=== PATIENT | male | born 1955 | race Hispanic/Latino ===

== ENCOUNTER 2017-06-28 07:07 | Day surgery (SDC) | payer OTHER ==
[2017-06-28 08:14] LABS: Basophils # (Auto) 0.1 K/mm3 (0.0-0.1); Eosinophils # (Auto) 0.5 K/mm3 (0.0-0.4); Eosinophils % (Auto) 6.5 % (0.0-4.3); Hematocrit 44.4 % (35.5-45.6); Lymphocytes # (Auto) 2.1 K/mm3 (1.2-5.4); Lymphocytes % (Auto) 26.4 % (13.4-35.0); Mean Corpuscular HGB Conc 34 % (32-34); Mean Corpuscular Hemoglobin 28 pg (28-32); Mean Corpuscular Volume 83 fl (84-94); Monocytes # (Auto) 0.9 K/mm3 (0.0-0.8); Monocytes % (Auto) 11.1 % (0.0-7.3); Platelet Count 143 K/mm3 (140-440); Red Blood Count 5.37 M/mm3 (3.65-5.03)
[2017-06-28 08:39] LABS: INR 1.01 (0.87-1.13)
[2017-06-28 08:40] LABS: Partial Thromboplastin Time 32.2 Sec. (24.2-36.6)
[2017-06-28] MEDS ORDERED: VERSED IV ONE ×2 (10:53→11:14)
[2017-06-28] MEDS ORDERED: SUBLIMAZE IV ONE (10:53)
[2017-06-28] MEDS ORDERED: GELFOAM 12 X 7 TP ONE ×2 (11:23→13:00)
--- NOTE | 2017-06-28 11:58 | Short Stay Summary ---
Short Stay Documentation Date of service: 06/28/17 - History Principal diagnosis: renal disease Past Medical History: renal failure Social history: no significant social history - Allergies and Medications Current Medications: Allergies No Known Allergies Allergy (Verified 06/28/17 07:43) Home Medications Medication Instructions Recorded Confirmed Last Taken Type Apremilast [Otezla] 30 mg PO DAILY 06/22/15 06/28/17 06/27/17 History Carvedilol [Coreg] 25 mg PO BID 06/22/15 06/28/17 06/27/17 History Cholecalciferol Vit D3 [Vitamin D3] 1,000 unit PO QDAY 06/22/15 06/28/17 History Febuxostat (Nf) [Uloric (Nf)] 80 mg PO DAILY 06/22/15 06/28/17 06/27/17 History Fexofenadine/Pseudoephedrine 1 each PO DAILY 06/22/15 06/28/17 06/27/17 History [[place]-D 24 Hour Tablet] Lansoprazole [Lansoprazole] 30 mg PO DAILY 06/22/15 06/28/17 06/27/17 History Lisinopril [Zestril TAB] 20 mg PO QDAY 06/22/15 06/28/17 06/27/17 History [place]-3 Fatty Acids/Fish Oil [Fish 3 each PO DAILY 06/22/15 06/28/17 06/27/17 History Oil] Testosterone Cypionate 200 mg IM QWEEK 06/22/15 06/28/17 06/20/17 History [Depo-Testosterone] AtorvaSTATin [Lipitor] 20 mg PO QHS 06/28/17 06/28/17 06/27/17 History Colchicine [Colcrys] 0.6 mg PO DAILY 06/28/17 06/28/17 06/27/17 History Metformin HCl [Metformin HCl] 1,000 mg PO DAILY 06/28/17 06/28/17 06/27/17 History amLODIPine [Norvasc] 10 mg PO DAILY 06/28/17 06/28/17 06/27/17 History Active Medications Gelatin (Gelfoam 12 X 7) 1 each TP ONCE ONE Stop: 06/28/17 11:51 - Physical exam General appearance: no acute distress HEENT: Atraumatic, PERRLA Lungs: Normal air movement Breasts: deferred Gastrointestinal: normal Male Genitourinary: deferred Rectal Exam: deferred Extremities: no ischemia Neurological: Normal gait, Normal speech - Brief post op/procedure progress note Date of procedure: 06/28/17 Pre-op diagnosis: renal disease Post-op diagnosis: same Procedure: Renal biopsy ct guided Anesthesia: local Surgeon: NIC CHANG Estimated blood loss: none Specimen disposition: to lab Condition: stable - Disposition Condition at discharge: Good Disposition: DC-01 TO HOME OR SELFCARE Short Stay Discharge Plan Activity: advance as tolerated Weight Bearing Status: Weight Bear as Tolerated Diet: regular Wound: keep clean and dry, per your surgeon's advice Follow up with: ERIC DURAND MD [Primary Care Provider] - 7 Days
[2017-06-28 13:12] VITALS: BP 130/79
--- NOTE | 2017-07-03 10:53 | Operative Report ---
Operative Report Operative Report: See report in PACS
--- NOTE | 2017-07-03 12:47 | Cat Scan Report ---
EXAM: CT-GUIDED BIOPSY OF LEFT KIDNEY CLINICAL HISTORY: PATIENT WITH HISTORY OF MEDICAL RENAL DISEASE DATE: 06/28/2017 PROCEDURE: Following an explanation of the risks, benefits and alternatives; written informed consent was obtained. The patient was brought to the CT suite and placed in prone position on the examination ago. Initial core filer images of the back were obtained an appropriate access site chosen along the lower hole of the left kidney. Using intermittent CT guidance, a 10 cm 18-gauge trocar needle was advanced to the margin of the left renal cortex. The trocar needle was then advanced approximately 1/2 cm into the renal cortex away from the collecting system. The trocar was removed and a core biopsy obtained using a [place] biopsy needle. The sample was adequate for pathologic analysis. Gelfoam was injected into the tract for hemostasis. Post biopsy imaging demonstrated no significant pericapsular or intra-abdominal hematoma. The needle was removed and hemostasis achieved at the skin surface is using manual compression. A sterile dressing was applied. The patient tolerated the procedure well. There were no immediate post procedure complications. Conscious sedation was performed with guidance radiological nursing. Continuous cardiopulmonary monitoring was utilized. IMPRESSION: 1) CT guided biopsy of left kidney.
== END 2017-06-28 13:50 | disposition home or self-care (01) ==
LOC: CATHLABREC 07:07 → EDSTATUS 08:30 → CATHLABREC 13:50
PROVIDERS: ATTEND Internal Medicine Nephrology
DX: N26.9 Renal sclerosis, unspecified (principal); N18.6 End stage renal disease
CPT/HCPCS: 36415; 50200; 77012; 85025; 85610; 85730; 88313; 88346; 88348; A4649; J2250; J3010